=== PATIENT | female | born 1980 | race Caucasian/White ===

== ENCOUNTER → 2017-08-18 | Outpatient (CLI) | payer MEDICAID ==
--- NOTE | 2017-08-18 10:46 | RADIOLOGY REPORT (SQ) ---
EXAM DESCRIPTION: SHOULDER LEFT 2 OR MORE VIEWS COMPLETED DATE/TIME: 08/18/2017 9:08 am REASON FOR STUDY: PAIN IN LEFT SHOULDER M25.512 PAIN IN LEFT SHOULDER COMPARISON: None. NUMBER OF VIEWS: Three views. TECHNIQUE: Internal rotation, external rotation, and Y view images acquired of the left shoulder. LIMITATIONS: None. FINDINGS: MINERALIZATION: Normal. BONES: No acute fracture or dislocation. No worrisome bone lesions. JOINTS: No dislocation. VISUALIZED LUNGS AND RIBS: No pneumothorax. No rib fracture. SOFT TISSUES: No radiopaque foreign body. OTHER: No other significant finding. IMPRESSION: NEGATIVE STUDY OF THE LEFT SHOULDER. NO RADIOGRAPHIC EVIDENCE OF ACUTE INJURY. TECHNICAL DOCUMENTATION: JOB ID: [id number] [employer]- All Rights Reserved
== END ==
LOC: OD 08:52
PROVIDERS: ATTEND Physician Assistant
DX: M25.512 Pain in left shoulder (principal)

== ENCOUNTER 2017-09-26 14:00 | Emergency (ER) | payer SELFPAY ==
[2017-09-26 14:06] VITALS: BP 125/63
--- NOTE | 2017-09-26 15:16 | ER Document Report ---
HPI - HPI Patient complains to provider of: Bartholin's gland infection Onset: Other - 10 days Onset/Duration: Persistent Quality of pain: Sharp Pain Level: 5 Context: Patient presents complaining of a Bartholin's gland abscess for the past 10 days. Patient states she recently had it drained 1 week ago was placed on Keflex. Patient states that she took the medicine for a few days and when the symptoms got better she stopped the antibiotic. Patient reports subjective fever yesterday. Patient does complain of some nausea. Associated Symptoms: Fever, Nausea Exacerbated by: Movement Relieved by: Denies Similar symptoms previously: Yes Recently seen / treated by doctor: Yes - ROS ROS below otherwise negative: Yes Systems Reviewed and Negative: Yes All other systems reviewed and negative - CONSTITUTIONAL Constitutional: REPORTS: Fever - GASTROINTESTINAL Gastrointestinal: REPORTS: Nausea - REPRODUCTIVE Reproductive: DENIES: : - DERM Notes: Bartholin's gland abscess Past Medical History - General Information source: Patient Last Menstrual Period: current - Social History Smoking Status: Current Every Day Smoker Smoking Education Provided: Yes Frequency of alcohol use: None Drug Abuse: None 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 Family History: Reviewed & Not Pertinent - Past Medical History Cardiac Medical History: Pulmonary Medical History: Endocrine Medical History: Denies: Hx Diabetes Mellitus Type 1, Hx Diabetes Mellitus Type 2 GI Medical History: Denies: Hx Hepatitis Musculoskeltal Medical History: 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 IN LAST 30 DAYS: No - HEENT HEENT: Atraumatic, Normocephalic - NECK Neck: Normal Inspection, Supple - RESPIRATORY Respiratory: Breath Sounds Normal, No Respiratory Distress O2 Sat by Pulse Oximetry: 98 - CARDIOVASCULAR Cardiovascular: Regular Rate, Regular Rhythm - REPRODUCTIVE Female Genitalia: Abnormal Inspection - bartholin gland abscess to left side - BACK Back: Normal Inspection - MUSCULOSKELETAL/EXTREMETIES Musculoskeletal/Extremeties: MAEW - NEURO Level of Consciousness: Awake, Alert, Appropriate Motor/Sensory: No Motor Deficit - DERM Integumentary: Warm, Dry Course - Re-evaluation Re-evalutation: 09/26/17 15:55 Offered placement of a Word catheter, patient declines and prefers only incision and drainage procedure here - Vital Signs Vital signs: Temp Pulse Resp BP Pulse Ox 98.0 F 89 16 125/63 98 09/26/17 14:05 09/26/17 14:05 09/26/17 14:05 09/26/17 14:05 09/26/17 14:05 Procedures - Incision and Drainage Left Labia Type: Simple Anesthetic type: 1% Lidocaine Blade size: 11 I&D procedure: Betadine prep applied Incision Method: Incision made by scalpel Amount/type of drainage: mod amount of purulent drainage Discharge - Discharge Clinical Impression: Bartholin's gland infection Condition: Stable Disposition: HOME, SELF-CARE Instructions: Abscess ([facility]), Oral Narcotic Medication ([facility]), Post Incision and Drainage, Trimethoprim-Sulfa ([facility]) Additional Instructions: Return immediately for any new or worsening symptoms Followup with your primary care provider, call tomorrow to make a followup appointment follow-up with a diet technician registered for definitive management of your Bartholin gland abscess Prescriptions: Oxycodone HCl/Acetaminophen [Percocet 5-325 mg Tablet] 1 tab PO ASDIR PRN #12 tablet PRN Reason: Promethazine HCl [Phenergan 25 mg Tablet] 25 mg PO Q6H PRN #10 tablet PRN Reason: Sulfamethoxazole/Trimethoprim [Bactrim Ds Tablet] 1 each PO BID #20 tablet Referrals: [facility] [Provider Group] - Follow up as needed [facility] [Provider Group] - Follow up as needed
[2017-09-26] MEDS ORDERED: ONDANSETRON 4 MG TAB.RAPDIS PO ONE (15:55)
[2017-09-26] MEDS ORDERED: SULFAMETHOXAZOLE/TRIMETHOPRIM 800-160 MG TABLET PO ONE (15:55)
== END 2017-09-26 16:10 | disposition home or self-care (01) ==
LOC: ER 14:00
PROC: 0U9L0ZZ Drainage of Vestibular Gland, Open Approach (ICD-10-PCS; principal; 2017-09-26)
DX: N75.1 Abscess of Bartholin's gland (principal); R11.0 Nausea; R50.9 Fever, unspecified; F17.200 Nicotine dependence, unspecified, uncomplicated
CPT/HCPCS: 99283; 56420; S0119

== ENCOUNTER 2017-10-30 16:59 | Emergency (ER) | payer MEDICAID ==
--- NOTE | 2017-10-30 17:20 | ER Document Report ---
ED Medical Screen (RME) - General Chief Complaint: Flank Pain Stated Complaint: LEFT SIDE FLANK PAIN Time Seen by Provider: 10/30/17 17:13 Notes: Patient says that she has had a sharp pain in the left flank region that started last night and radiates around and down into the left lower quadrant. Onset of the pain was while she was sitting and not doing anything strenuous. 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 Has never had this before. Nauseated but not vomiting. No diarrhea or other change in bowels. Denies any fever but has had some sweats for the past couple of days. Denies any history of kidney stones. Does not recall having a UTI or kidney infection. Patient has had her gallbladder removed. Tubes tied. Just finished her most recent period. Has anxiety and occasionally has to take a Xanax, but does not feel that way now. TRAVEL OUTSIDE OF THE [place] IN LAST 30 DAYS: No - Related Data Allergies/Adverse Reactions: No Known Allergies Allergy (Verified 10/30/17 17:01) Home Medications: Current Home Medications Alprazolam [Xanax] 1 mg PO DAILY 10/30/17 [History] Past Medical History - Social History Chew tobacco use (# tins/day): No Frequency of alcohol use: Rare Drug Abuse: None - Past Medical History Cardiac Medical History: Pulmonary Medical History: Endocrine Medical History: Denies: Hx Diabetes Mellitus Type 1, Hx Diabetes Mellitus Type 2 Renal/ Medical History: Denies: Hx Peritoneal Dialysis GI Medical History: Denies: Hx Hepatitis Musculoskeltal Medical History: 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 Psychiatric Medical History: Reports: Hx Anxiety, Hx Depression Infectious Medical History: Denies: Hx Hepatitis Past Surgical History: Reports: Hx Cholecystectomy, Hx Gynecologic Surgery - tubal ligation, Hx Tubal Ligation - Immunizations Immunizations up to date: Yes Hx Diphtheria, Pertussis, Tetanus Vaccination: Yes Physical Exam - Vital signs Vitals: Temp Pulse Resp BP Pulse Ox 98.8 F 88 14 122/68 100 10/30/17 17:04 10/30/17 17:04 10/30/17 17:04 10/30/17 17:04 10/30/17 17:04 Course - Vital Signs Vital signs: Temp Pulse Resp BP Pulse Ox 98.8 F 88 14 122/68 100 10/30/17 17:04 10/30/17 17:04 10/30/17 17:04 10/30/17 17:04 10/30/17 17:04
[2017-10-30 18:04] LABS: ABSOLUTE EOSINOPHILS # (AUTO) 0.1 10^3/uL (0.0-0.6); ABSOLUTE LYMPHOCYTES (AUTO) 2.6 10^3/uL (0.5-4.7); ABSOLUTE MONOCYTES (AUTO) 0.8 10^3/uL (0.1-1.4); ABSOLUTE NEUT (AUTO) 5.1 10^3/uL (1.7-8.2); BASOPHILS % (AUTO) 0.3 % (0-2); EOSINOPHILS % (AUTO) 1.1 % (0-6); HEMATOCRIT 36.3 % (36.0-47.0); HEMOGLOBIN 12.5 g/dL (12.0-15.5); HGB HCT DIFFERENCE 1.2; LYMPHOCYTES % (AUTO) 30.5 % (13-45); MEAN CORPUSCULAR HEMOGLOBIN 30.8 pg (27.0-33.4); MEAN CORPUSCULAR HGB CONC 34.3 g/dL (32.0-36.0); MEAN CORPUSCULAR VOLUME 90 fl (80-97); MONOCYTES % (AUTO) 8.8 % (3-13); RED BLOOD COUNT 4.04 10^6/uL (3.72-5.28); RED CELL DISTRIBUTION WIDTH 12.7 % (11.5-14.0); SEGMENTED NEUTROPHILS % (AUTO) 59.3 % (42-78); WHITE BLOOD COUNT 8.6 10^3/uL (4.0-10.5)
[2017-10-30 18:12] LABS: APPEARANCE,URINE SLIGHTLY-CLOUDY; BILIRUBIN,URINE NEGATIVE (NEGATIVE); GLUCOSE, URINE NEGATIVE (NEGATIVE); KETONES,URINE NEGATIVE (NEGATIVE); LEUKOCYTE ESTERASE,URINE SMALL (NEGATIVE); NITRITE,URINE NEGATIVE (NEGATIVE); PROTEIN,URINE NEGATIVE (NEGATIVE); URINE SPECIFIC GRAVITY 1.019; UROBILINOGEN,URINE NEGATIVE mg/dL (<2.0)
[2017-10-30 18:23] LABS: ALANINE AMINOTRANSFERASE 20 U/L (9-52); ALBUMIN 4.5 g/dL (3.5-5.0); ALKALINE PHOSPHATASE 36 U/L (38-126); ANION GAP 12 (5-19); ASPARTATE AMINO TRANSFERASE 27 U/L (14-36); BILIRUBIN,DIRECT 0.2 mg/dL (0.0-0.4); BILIRUBIN,TOTAL 0.3 mg/dL (0.2-1.3); BLOOD UREA NITROGEN 14 mg/dL (7-20); CALCIUM 9.8 mg/dL (8.4-10.2); CARBON DIOXIDE 27 mmol/L (22-30); CHLORIDE 105 mmol/L (98-107); CREATININE RESULT 0.73 mg/dL (0.52-1.25); GLUCOSE 85 mg/dL (75-110); LIPASE 80.9 U/L (23-300); POTASSIUM 3.7 mmol/L (3.6-5.0); SODIUM 143.6 mmol/L (137-145); TOTAL PROTEIN 7.4 g/dL (6.3-8.2)
--- NOTE | 2017-10-30 20:32 | RADIOLOGY REPORT (SQ) ---
EXAM DESCRIPTION: KUB/ABDOMEN (SINGLE VIEW) COMPLETED DATE/TIME: 10/30/2017 8:10 pm REASON FOR STUDY: Abdominal pain COMPARISON: None. NUMBER OF VIEWS: One view. TECHNIQUE: Supine radiographic image of the abdomen acquired. LIMITATIONS: None. FINDINGS: BOWEL GAS PATTERN: Normal bowel gas pattern. No dilated loops. CALCIFICATIONS: No suspicious calcifications. SOFT TISSUES: No gross mass or suggestion of organomegaly. HARDWARE: Clips right upper quadrant. BONES: No bone lesions or fracture. OTHER: No other significant finding. IMPRESSION: NO RADIOGRAPHIC EVIDENCE FOR ACUTE ABDOMINAL DISEASE.
--- NOTE | 2017-10-30 21:43 | ER Document Report ---
ED General - General Chief Complaint: Flank Pain Stated Complaint: LEFT SIDE FLANK PAIN Time Seen by Provider: 10/30/17 17:13 Mode of Arrival: Ambulatory Information source: Patient Notes: 37 years old female presents today with left flank pain radiating to the groin on and off. Few days. Associated with nausea and vomited 2. Denies any fever chills dysuria frequency urgency. TRAVEL OUTSIDE OF THE [place] IN LAST 30 DAYS: No - Related Data Allergies/Adverse Reactions: No Known Allergies Allergy (Verified 10/30/17 17:01) Home Medications: Current Home Medications Alprazolam [Xanax] 1 mg PO DAILY 10/30/17 [History] Past Medical History - Social History Smoking Status: Current Some Day Smoker Chew tobacco use (# tins/day): No Frequency of alcohol use: Rare Drug Abuse: None Family History: Reviewed & Not Pertinent Patient has suicidal ideation: No Patient has homicidal ideation: No - Past Medical History Cardiac Medical History: Pulmonary Medical History: Endocrine Medical History: Denies: Hx Diabetes Mellitus Type 1, Hx Diabetes Mellitus Type 2 Renal/ Medical History: Denies: Hx Peritoneal Dialysis GI Medical History: Denies: Hx Hepatitis Musculoskeltal Medical History: 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 Denies recent illness. EENT: Denies eye, ear, throat, or mouth pain or symptoms. Denies nasal or sinus congestion or discharge. Denies throat, tongue, or mouth swelling or difficulty swallowing. CARDIOVASCULAR: Denies chest pain. Denies palpitations or racing or irregular heart beat. Denies ankle edema. RESPIRATORY: Denies cough, cold, or chest congestion. Denies shortness of breath, difficulty breathing, or wheezing. GASTROINTESTINAL: Denies abdominal pain or distention. Denies nausea, vomiting , or diarrhea. Denies blood in vomitus, stools, or per rectum. Denies black, tarry stools. Denies constipation. GENITOURINARY: Denies difficulty urinating, painful urination, burning, frequency, blood in urine, or discharge. FEMALE GENITOURINARY: Denies vaginal bleeding, heavy or abnormal periods, irregular periods. Denies vaginal discharge or odor. MUSCULOSKELETAL: Denies back or neck pain or stiffness. Denies joint pain or swelling. SKIN: Denies rash, lesions or sores. HEMATOLOGIC : Denies easy bruising or bleeding. LYMPHATIC: Denies swollen, enlarged glands. NEUROLOGICAL: Denies confusion or altered mental status. Denies passing out or loss of consciousness. Denies dizziness or lightheadedness. Denies headache. Denies weakness or paralysis or loss of use of either side. Denies problems with gait or speech. Denies sensory loss, numbness, or tingling. Denies seizures. PSYCHIATRIC: Denies anxiety or stress. Denies depression, suicidal ideation, or homicidal ideation. ALL OTHER SYSTEMS REVIEWED AND NEGATIVE. PHYSICAL EXAMINATION: GENERAL: Well-appearing, well-nourished and in no acute distress. HEAD: Atraumatic, normocephalic. EYES: Pupils equal round and reactive to light, extraocular movements intact, conjunctiva are normal. ENT: Nares patent, oropharynx clear without exudates. Moist mucous membranes. NECK: Normal range of motion, supple without lymphadenopathy LUNGS: Breath sounds clear to auscultation bilaterally and equal. No wheezes rales or rhonchi. HEART: Regular rate and rhythm without murmurs ABDOMEN: Soft, nontender, nondistended abdomen. No guarding, no rebound. No masses appreciated. Female : deferred Musculoskeletal: Normal range of motion, no pitting or edema. No cyanosis. NEUROLOGICAL: Cranial nerves grossly intact. Normal speech, normal gait. Normal sensory, motor exams PSYCH: Normal mood, normal affect. SKIN: Warm, Dry, normal turgor, no rashes or lesions noted. Dictation was performed using [employer] voice recognition software Physical Exam - Vital signs Vitals: Temp Pulse Resp BP Pulse Ox 98.8 F 88 14 122/68 100 10/30/17 17:04 10/30/17 17:04 10/30/17 17:04 10/30/17 17:04 10/30/17 17:04 Course - Re-evaluation Re-evalutation: 10/30/17 21:40 Lab report and KUB was reviewed with patient. She was unhappy that it took 6 hours for her to be here we are very busy today - Vital Signs Vital signs: Temp Pulse Resp BP Pulse Ox 98.8 F 88 14 122/68 100 10/30/17 17:04 10/30/17 17:04 10/30/17 17:04 10/30/17 17:04 10/30/17 17:04 - Laboratory Result Diagrams: 10/30/17 17:45 10/30/17 17:45 Laboratory results interpreted by me: 10/30/17 10/30/17 17:40 17:45 Alkaline Phosphatase 36 L Ur Leukocyte Esterase SMALL H - Diagnostic Test Radiology reviewed: Reports reviewed - Abdominal report is read from the radiologist, but KUB showed large amount of retained feces Discharge - Discharge Clinical Impression: Abdominal pain Qualifiers: Abdominal location: generalized Qualified Code(s): R10.84 - Generalized abdominal pain Retained feces Qualifiers: Constipation type: slow transit constipation Qualified Code(s): K59.01 - Slow transit constipation Disposition: HOME, SELF-CARE Instructions: Abdominal Pain ([facility]), Bulk Laxatives Additional Instructions: Regular bowel her bowel habit, lots of fibers Prescriptions: Ketorolac Tromethamine [Toradol 10 mg Tablet] 10 mg PO Q6HP PRN #14 tablet PRN Reason: Lactulose 20 gm PO BID #100 ml
[2017-10-30 21:50] VITALS: BP 127/71
== END 2017-10-30 21:49 | disposition home or self-care (01) ==
LOC: ER 16:59
DX: K59.01 Slow transit constipation (principal); R10.84 Generalized abdominal pain; R11.2 Nausea with vomiting, unspecified; F17.200 Nicotine dependence, unspecified, uncomplicated; Z79.899 Other long term (current) drug therapy
CPT/HCPCS: 36415; 74000; 80053; 81001; 83690; 84703; 85025; 99284

== ENCOUNTER 2018-12-14 17:23 | Emergency (ER) | payer MEDICAID ==
[2018-12-14] MEDS ORDERED: ACETAMINOPHEN 325 MG TABLET PO ONE (18:36)
[2018-12-14] MEDS ORDERED: IBUPROFEN 600 MG TABLET PO ONE (18:45)
[2018-12-14] MEDS ORDERED: DEXAMETHASONE SOD PHOS INJ 10 MG/1 ML VIAL IM ONE (18:48)
--- NOTE | 2018-12-14 18:49 | ER Document Report ---
HPI - HPI Patient complains to provider of: fever, chills ,sore throat Time Seen by Provider: 12/14/18 18:35 Pain Level: 4 Context: 38-year-old female with no past medical history presents to the emergency department for fever, raw throat, and bilateral earaches. She says symptoms started yesterday when she was at a friend's house and fell asleep on the couch for 4 hours. She was fine and then today her throat started getting scratchy and then became acutely worse. She complains of dysphagia, fever, chills denies nausea or vomiting, denies shortness of breath or chest pain. She denies urinary symptoms. She has no other symptoms. 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 No acute distress. HEAD: Normocephalic, atraumatic. EYES: Pupils equal, round, and reactive. Extraocular movements intact. ENT: Oral mucosa moist, tongue midline, uvula midline 2+ tonsillar hypertrophy, exudate on right tonsil NECK: Full range of motion. Supple. Trachea midline. Bilateral submandibular and cervical lymphadenopathy LUNGS: Clear to auscultation bilaterally, no wheezes, rales, or rhonchi. No respiratory distress. HEART: Regular rate and rhythm. No murmur ABDOMEN: soft, non-tender. Non-distended. Bowel sounds present in all 4 quadrants. no McBurney's point tenderness, no Eubanks sign. EXTREMITIES: Moves all 4 extremities spontaneously. No edema, No cyanosis. BACK: no cervical, thoracic, lumbar midline tenderness. No saddle anesthesia, normal distal neurovascular exam. NEUROLOGICAL: Alert and oriented x3. Normal speech. PSYCH: Normal affect, normal mood. SKIN: Warm, dry, normal turgor. No rashes or lesions noted. - INFECTION CONTROL TRAVEL OUTSIDE OF THE [place] IN LAST 30 DAYS: No Course - Re-evaluation Re-evalutation: 12/14/18 18:47 38 female presents with high fever that started today, sore throat, and earache. Plan is to obtain a rapid strep. Plan is to give her 1 dose of dexamethasone. 12/14/18 19:49 Positive for group A strep. Plan to give penicillin G IM 1,200,000 units 1 time and discharge. Patient is safe and stable for discharge pending vital signs - Vital Signs Vital signs: Temp Pulse Resp BP Pulse Ox 102.3 F H 122 H 20 125/73 100 12/14/18 18:00 12/14/18 18:00 12/14/18 18:00 12/14/18 18:00 12/14/18 18:00 Discharge - Discharge Clinical Impression: Pharyngitis due to group A beta hemolytic Streptococci Condition: Good Disposition: HOME, SELF-CARE Instructions: Acetaminophen, Fever ([facility]), Strep Throat ([facility]) Additional Instructions: You have been diagnosed with strep throat based on a positive strep test. You have been treated with a dose of penicillin here in the emergency department and do not need any additional antibiotics. You have also been given a dose of steroids to help with your throat discomfort. Please continue to take ibuprofen 600 mg every 6 hours or Tylenol 1000 mg every 6 hours as needed for throat discomfort. You can also gargle with salt water. Continue to drink plenty of fluids. Follow-up with your primary care doctor in the next several days. Return if you become unable to swallow, have difficulty breathing, pass out, have persistent vomiting that prevents you from being able to tolerate fluids, or have any other symptoms that are concerning to you. Prescriptions: Penicillin V Potassium [Penicillin Vk 500 mg Tablet] 500 mg PO BID 10 Days #20 tablet Referrals: KELLI OCHOA MD [Primary Care Provider] - Follow up as needed
[2018-12-14] MEDS ORDERED: PENICILLIN G BENZATHINE 1.2 MILLION UNIT/2 ML DISP.SYRIN IM ONE (19:48)
[2018-12-14] MEDS ORDERED: PENICILLIN V POTASSIUM 500 MG TABLET PO ONE (20:08)
[2018-12-14 20:24] VITALS: BP 129/70
== END 2018-12-14 20:28 | disposition home or self-care (01) ==
LOC: ER 17:23
DX: J02.0 Streptococcal pharyngitis (principal); R50.9 Fever, unspecified; H92.03 Otalgia, bilateral; F17.200 Nicotine dependence, unspecified, uncomplicated
CPT/HCPCS: 99283; 96372; 87880; J3490 ×3; J1100

== ENCOUNTER 2019-11-13 07:42 | Emergency (ER) | payer MEDICAID ==
[2019-11-13] MEDS ORDERED: IBUPROFEN 600 MG TABLET PO ONE (08:38)
[2019-11-13] MEDS ORDERED: ONDANSETRON 4 MG TAB.RAPDIS PO ONE (08:38)
--- NOTE | 2019-11-13 08:41 | ER Document Report ---
ED General - General Chief Complaint: Nausea Stated Complaint: NAUSEA,VOMITING,DIARRHEA Primary Care Provider: KELLI FORTUNE DO [Primary Care Provider] - Follow up as needed Notes: 39-year-old female previously healthy presents with ongoing malaise nausea and loose stools onset yesterday. For 24 hours. Constant. Able to drink water but nothing more. No belly pain no fevers. Went out drinking heavily on Wednesday night and felt this way since Wednesday morning. No foreign travel antibiotics. Denies any other medical history. TRAVEL OUTSIDE OF THE [place] 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 Psychiatric Medical History: Reports: Hx Anxiety, Hx Depression Infectious Medical History: Denies: Hx Hepatitis Past Surgical History: Reports: Hx Cholecystectomy, Hx Gynecologic Surgery - tubal ligation, Hx Tubal Ligation - Immunizations Immunizations up to date: Yes Hx Diphtheria, Pertussis, Tetanus Vaccination: Yes Review of Systems - Review of Systems Notes: REVIEW OF SYSTEMS GEN: Denies fever, chills, weight loss ENT: Denies sore throat, nasal discharge, ear pain EYES: Denies blurry vision, eye pain, discharge CV: Denies chest pain, palpitations, edema RESP: Denies cough, shortness of breath, wheezing GI: Vomiting loose stool MSK: Denies joint pain/swelling, edema, SKIN: Denies rash, skin lesions LYMPH: Denies swollen glands/lymph nodes NEURO: Denies headache, focal weakness or numbness, dizziness PSYCH: Denies depression, suicidal or homicidal ideation PHYSICAL EXAMINATION General: No acute distress, well-nourished Head: Atraumatic, normocephalic ENT: Mouth normal, oropharynx moist, no exudates or tonsillar enlargement Eyes: Conjunctiva normal, pupils equal, lids normal Neck: No JVD, supple, no guarding CVS: Normal rate, regular rhythm, no murmurs Resp: No resp distress, equal and normal breath sounds bilaterally GI: Nondistended, soft, no tenderness to palpation, no rebound or guarding Ext: No deformities, no edema, normal range of motion in upper and lower ext Back: No CVA or midline TTP Skin: No rash, warm Lymphatic: No lymphadeopathy noted Neuro: Awake, alert. Face symmetric. GCS 15. Physical Exam - Vital signs Vitals: Temp Pulse Resp BP Pulse Ox 97.8 F 79 18 114/78 98 11/13/19 07:46 11/13/19 07:46 11/13/19 07:46 11/13/19 07:46 11/13/19 07:46 Course - Re-evaluation Re-evalutation: 11/13/19 08:39 Patient presents with resolving nausea and vomiting, no abdominal pain or tenderness normal vital signs, not clinically dehydrated. Suspect alcoholrelated. Doubt focal abdominal tenderness or other surgical issues. She has no urinary symptoms either. We will treat her with Zofran Motrin, should be discharged to hydrate orally. I have discussed with the patient there likely diagnosis, aftercare plan, follow-up plans and my usual and customary return precautions. They verbalized understanding of this. - Vital Signs Vital signs: Temp Pulse Resp BP Pulse Ox 97.8 F 79 18 114/78 98 11/13/19 07:46 11/13/19 07:46 11/13/19 07:46 11/13/19 07:46 11/13/19 07:46 Discharge - Discharge Clinical Impression: Nausea vomiting and diarrhea Condition: Good Disposition: HOME, SELF-CARE Instructions: Antinausea Medication ([facility]), Vomiting ([facility]) Prescriptions: Ondansetron [Ondansetron Odt] 8 mg PO TIDP PRN #7 tab.rapdis PRN Reason: Referrals: KELLI FORTUNE DO [Primary Care Provider] - Follow up as needed
[2019-11-13 09:14] VITALS: BP 109/50
== END 2019-11-13 09:14 | disposition home or self-care (01) ==
LOC: ER 07:42
DX: R11.2 Nausea with vomiting, unspecified (principal); R19.7 Diarrhea, unspecified; R53.81 Other malaise
CPT/HCPCS: 99283; S0119; J3490

== ENCOUNTER 2020-01-18 09:11 | Emergency (ER) | payer MEDICAID ==
[2020-01-18] MEDS ORDERED: ACETAMINOPHEN 325 MG TABLET PO ONE (10:14)
[2020-01-18] MEDS ORDERED: IBUPROFEN 600 MG TABLET PO ONE (10:14)
[2020-01-18] MEDS ORDERED: ONDANSETRON 4 MG TAB.RAPDIS PO ONE (10:14)
--- NOTE | 2020-01-18 10:15 | ER Document Report ---
ED Medical Screen (RME) - General Chief Complaint: Dizziness Stated Complaint: DIZZINESS/CHILLS/COUGH/VOMITING Time Seen by Provider: 01/18/20 10:09 Primary Care Provider: KELLI FORTUNE DO [Primary Care Provider] - Follow up as needed Mode of Arrival: Ambulatory Information source: Patient Notes: Otherwise healthy 39-year-old female presents emergency department fever, congestion, body aches and sore throat. 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 She has not taken any Tylenol or ibuprofen today. Lung sounds clear and equal bilaterally. I have greeted and performed a rapid initial assessment of this patient. A comprehensive ED assessment and evaluation of the patient, analysis of test results and completion of the medical decision making process will be conducted by additional ED providers. I have specifically instructed the patient or family members with the patient to immediately return to any nursing staff should anything change in the patient's condition or with their chief complaint. TRAVEL OUTSIDE OF THE [place] 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 Psychiatric Medical History: Reports: Hx Anxiety, Hx Depression Infectious Medical History: Denies: Hx Hepatitis Past Surgical History: Reports: Hx Cholecystectomy, Hx Gynecologic Surgery - tubal ligation, Hx Tubal Ligation - Immunizations Immunizations up to date: Yes Hx Diphtheria, Pertussis, Tetanus Vaccination: Yes Physical Exam - Vital signs Vitals: Temp Pulse Resp BP Pulse Ox 100.5 F H 99 16 126/62 H 96 01/18/20 09:19 01/18/20 09:19 01/18/20 09:19 01/18/20 09:19 01/18/20 09:19 Course - Vital Signs Vital signs: Temp Pulse Resp BP Pulse Ox 100.5 F H 99 16 126/62 H 96 01/18/20 09:19 01/18/20 09:19 01/18/20 09:19 01/18/20 09:19 03/12/20 09:19 Doctor's Discharge - Discharge Referrals: KELLI FORTUNE, [Primary Care Provider] - Follow up as needed
--- NOTE | 2020-01-18 10:40 | RADIOLOGY REPORT (SQ) ---
EXAM DESCRIPTION: CHEST 2 VIEWS COMPLETED DATE/TIME: 01/18/2020 10:31 am REASON FOR STUDY: fever/cough COMPARISON: None. TECHNIQUE: Frontal and lateral radiographic views of the chest acquired. NUMBER OF VIEWS: Two view. LIMITATIONS: None. FINDINGS: LUNGS AND PLEURA: No opacities, masses or pneumothorax. No pleural effusion. MEDIASTINUM AND HILAR STRUCTURES: No masses or contour abnormalities. HEART AND VASCULAR STRUCTURES: Heart normal size. No evidence for failure. BONES: No acute findings. HARDWARE: None in the chest. OTHER: No other significant finding. IMPRESSION: NO SIGNIFICANT RADIOGRAPHIC FINDING IN THE CHEST. TECHNICAL DOCUMENTATION: JOB ID: [id number] 2010 [employer]- All Rights Reserved Reading location - IP/workstation name: [email or web address]
[2020-01-18 10:57] LABS: A TYPE INFLUENZA AG NEGATIVE (NEGATIVE); B INFLUENZA AG NEGATIVE (NEGATIVE)
[2020-01-18] MEDS ORDERED: NORMAL SALINE 1000 ML 1,000 ML IV ONE (12:41)
[2020-01-18] MEDS ORDERED: FAMOTIDINE INJ/PF 20 MG/2 ML SDV IV ONE (12:42)
[2020-01-18 13:21] LABS: HEMOGLOBIN 11.8 g/dL (12.0-15.5); MEAN CORPUSCULAR HEMOGLOBIN 28.7 pg (27.0-33.4); MEAN CORPUSCULAR HGB CONC 33.8 g/dL (32.0-36.0); MEAN CORPUSCULAR VOLUME 85 fl (80-97); PLATELET COUNT 221 10^3/uL (150-450); RED BLOOD COUNT 4.12 10^6/uL (3.72-5.28); RED CELL DISTRIBUTION WIDTH 14.6 % (11.5-14.0); WHITE BLOOD COUNT 5.5 10^3/uL (4.0-10.5)
[2020-01-18 13:40] LABS: ALBUMIN 4.5 g/dL (3.5-5.0); ALKALINE PHOSPHATASE 45 U/L (38-126); ANION GAP 11 (5-19); ASPARTATE AMINO TRANSFERASE 35 U/L (14-36); BILIRUBIN,DIRECT 0.3 mg/dL (0.0-0.4); BILIRUBIN,TOTAL 0.3 mg/dL (0.2-1.3); BLOOD UREA NITROGEN 16 mg/dL (7-20); CALCIUM 9.4 mg/dL (8.4-10.2); CARBON DIOXIDE 23 mmol/L (22-30); CHLORIDE 103 mmol/L (98-107); GLUCOSE 110 mg/dL (75-110); TOTAL PROTEIN 7.7 g/dL (6.3-8.2)
[2020-01-18 14:06] LABS: ABSOLUTE LYMPHOCYTES# (MANUAL) 0.2 10^3/uL (0.5-4.7); ABSOLUTE MONOCYTES # (MANUAL) 0.3 10^3/uL (0.1-1.4); BAND NEUTROPHILS % (MANUAL) 5 % (3-5); BASOPHILS % (MANUAL) 1 % (0-2); EOSINOPHILS % (MANUAL) 0 % (0-6); LYMPHOCYTES % (MANUAL) 3 % (13-45); MONOCYTES % (MANUAL) 6 % (3-13); SEGMENTED NEUTROPHILS % (MAN) 85 % (42-78); TOTAL CELLS COUNTED 100
[2020-01-18 14:07] LABS: ANISOCYTOSIS SLIGHT
[2020-01-18 14:08] LABS: OVALOCYTES SLIGHT; PLATELET COMMENT ADEQUATE
--- NOTE | 2020-01-18 14:14 | ER Document Report ---
ED General - General Chief Complaint: Dizziness Stated Complaint: DIZZINESS/CHILLS/COUGH/VOMITING Time Seen by Provider: 01/18/20 10:09 Primary Care Provider: KELLI FORTUNE DO [Primary Care Provider] - Follow up as needed Mode of Arrival: Ambulatory TRAVEL OUTSIDE OF THE [place] 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 Symptoms as above within the last 24 hours. Started vomiting this morning. Temperature 101 at home. No travel outside the area. No known history of exposure to individuals positive for Covid 19. No regular medications. No known allergies. - Related Data Allergies/Adverse Reactions: No Known Allergies Allergy (Verified 12/14/18 17:25) Past Medical History - General Information source: Patient - Social History Smoking Status: Current Every Day Smoker Family History: Reviewed & Not Pertinent Patient has suicidal ideation: No Patient has homicidal ideation: No - Past Medical History Cardiac Medical History: Pulmonary Medical History: Endocrine Medical History: Denies: Hx Diabetes Mellitus Type 1, Hx Diabetes Mellitus Type 2 Renal/ Medical History: Denies: Hx Peritoneal Dialysis GI Medical History: Denies: Hx Hepatitis Musculoskeletal Medical History: 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 HENT: Positive for sore throat. Eyes: Negative for visual changes. Cardiovascular: Negative for chest pain. Respiratory: Producing green sputum. Negative for shortness of breath. Gastrointestinal: Multiple episodes of vomiting this morning. Genitourinary: Negative for dysuria. Musculoskeletal: Negative for back pain. Skin: Negative for rash. Neurological: Dull headache present. 10 point ROS negative except as marked above and in HPI. Physical Exam - Vital signs Vitals: Temp Pulse Resp BP Pulse Ox 100.5 F H 99 16 126/62 H 96 01/18/20 09:19 01/18/20 09:19 01/18/20 09:19 01/18/20 09:19 01/18/20 09:19 - Notes Notes: GENERAL: Patient is warm to touch, flushed and appears somewhat uncomfortable. SKIN: Warm and flushed. HEAD: Normocephalic atraumatic. EYES: PERRLA. EOMI. Conjunctivae bilaterally injected. EARS: CANALS AND TMS CLEAR. NOSE: CLEAR. MOUTH: Moist mucosa. Good dentition. No stridor or edema. No drooling. Throat: Injected without exudate. NECK: Supple. No masses or thyromegaly. No adenopathy. Carotids 2+ without bruits. No JVD. BACK: Symmetrical without tenderness. CHEST: Respirations unlabored. Few scattered rhonchi bilaterally. HEART: Regular rhythm. No murmur gallop or rub. ABDOMEN: Soft nontender without masses, organomegaly or rebound. Bowel sounds hyperactive. No bruits. GENITALIA: Deferred. EXTREMITIES: No edema. No calf tenderness. Cap refill less than 1.5 seconds. Dorsalis pedis and posterior tibial pulses 3+ and symmetrical. NEUROLOGICAL: GCS 15. Alert and oriented x3. Fluent speech. Cranial nerves II through XII intact. Sensorimotor and cerebellar normal. Normal tone. PSYCHIATRIC: Appropriate affect. Course - Re-evaluation Re-evalutation: 01/18/20 15:23 Influenza a and B screens were negative. Chest x-ray showed no focal infiltrate. Rapid strep test negative. Patient's total white count not elevated although she does have a mild left shift. Her chemistry profile is unremarkable. Feels much better after getting some IV normal saline and IV Zofran. She is tolerating p.o. fluids and wants to go home at this time. This is probably viral but I am concerned about the production of green sputum along with her heavy cigarette smoking. I am going to send her home on some doxycycline and also give her some Zofran and a work note for the next 3 days. She is instructed to increase oral fluids and take Tylenol and/or ibuprofen. - Vital Signs Vital signs: Temp Pulse Resp BP Pulse Ox 98.0 F 78 16 106/54 L 99 01/18/20 13:17 01/18/20 13:17 01/18/20 09:19 01/18/20 13:17 01/18/20 13:17 - Laboratory Result Diagrams: 01/18/20 13:05 01/18/20 13:05 Laboratory results interpreted by me: 01/18/20 01/18/20 13:05 13:05 Hgb 11.8 L Hct 35.0 L RDW 14.6 H Seg Neuts % (Manual) 85 H Lymphocytes % (Manual) 3 L Abs Lymphs (Manual) 0.2 L Sodium 136.9 L ALT 59 H Discharge - Discharge Clinical Impression: Acute bronchitis Condition: Stable Disposition: HOME, SELF-CARE Instructions: Antinausea Medication ([facility]) Additional Instructions: Increase oral fluids. Tylenol/ibuprofen as needed. Use prescription medications as instructed. Follow-up with your physician if unimproved within the next 2 to 3 days. Return here as needed for new or worsening symptoms: Pain that is worsening or unimproved Uncontrolled vomiting High fever or shaking chills Overall worsening Prescriptions: Doxycycline Monohydrate 100 mg PO BID #20 capsule Ondansetron [Zofran Odt 4 mg Tablet] 1 - 2 tab PO Q4H PRN #15 tab.rapdis PRN Reason: For Nausea/Vomiting Forms: Return to Work, Smoking Cessation Education Referrals: KELLI FORTUNE DO [Primary Care Provider] - Follow up as needed
[2020-01-18 16:04] VITALS: BP 126/62
== END 2020-01-18 16:01 | disposition home or self-care (01) ==
LOC: ER 09:11
DX: J20.9 Acute bronchitis, unspecified (principal); R05 Cough; R50.9 Fever, unspecified; M79.10 Myalgia, unspecified site; R11.10 Vomiting, unspecified; J02.9 Acute pharyngitis, unspecified; R51 Headache; F17.210 Nicotine dependence, cigarettes, uncomplicated
CPT/HCPCS: 99284; 96361; 96374; 36415; 87070; 87880; 85025; 80053; 87804; 71046; J3490 ×2; S0119; J7030; S0028

== ENCOUNTER 2020-01-23 08:41 | Emergency (ER) | payer MEDICAID ==
--- NOTE | 2020-01-23 09:28 | ER Document Report ---
ED Medical Screen (RME) - General Chief Complaint: Flu Symptoms Stated Complaint: NAUSEA/CHILLS/COUGH Time Seen by Provider: 01/23/20 09:23 Primary Care Provider: KELLI FORTUNE DO [Primary Care Provider] - Follow up as needed Mode of Arrival: Ambulatory Information source: Patient Notes: 39-year-old female presents to ED for flulike symptoms. She is alert oriented respirations regular nonlabored speaking in full sentences her temperature is 97.8. He states she started with a cough and congestion last week she has sore throat runny nose upset stomach chest pain for last week she states she was here last week for similar symptoms and did not have an EKG. We will get her EKG and blood work. I have greeted and performed a rapid initial assessment of this patient. A comprehensive ED assessment and evaluation of the patient, analysis of test results and completion of medical decision making process will be conducted by an additional ED providers. TRAVEL OUTSIDE OF THE [place] 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 Psychiatric Medical History: Reports: Hx Anxiety, Hx Depression Infectious Medical History: Denies: Hx Hepatitis Past Surgical History: Reports: Hx Cholecystectomy, Hx Gynecologic Surgery - tubal ligation, Hx Tubal Ligation - Immunizations Immunizations up to date: Yes Hx Diphtheria, Pertussis, Tetanus Vaccination: Yes Physical Exam - Vital signs Vitals: Temp Pulse Resp BP Pulse Ox 97.8 F 64 16 119/67 98 01/23/20 08:45 01/23/20 08:45 01/23/20 08:45 01/23/20 08:45 01/23/20 08:45 Course - Vital Signs Vital signs: Temp Pulse Resp BP Pulse Ox 97.8 F 64 16 119/67 98 01/23/20 08:45 01/23/20 08:45 01/23/20 08:45 01/23/20 08:45 01/23/20 08:45 Doctor's Discharge - Discharge Referrals: KELLI FORTUNE DO [Primary Care Provider] - Follow up as needed
--- NOTE | 2020-01-23 10:20 | RADIOLOGY REPORT (SQ) ---
EXAM DESCRIPTION: CHEST 2 VIEWS COMPLETED DATE/TIME: 01/23/2020 8:44 am REASON FOR STUDY: cough congestion COMPARISON: Chest radiograph 06/27/2016 EXAM PARAMETERS: NUMBER OF VIEWS: two views TECHNIQUE: Digital Frontal and Lateral radiographic views of the chest acquired. RADIATION DOSE: NA LIMITATIONS: none FINDINGS: LUNGS AND PLEURA: No opacities, masses or pneumothorax. No pleural effusion. MEDIASTINUM AND HILAR STRUCTURES: No masses or contour abnormalities. HEART AND VASCULAR STRUCTURES: Heart normal size. No evidence for failure. BONES: No acute findings. HARDWARE: None in the chest. OTHER: No other significant finding. IMPRESSION: NO ACUTE RADIOGRAPHIC FINDING IN THE CHEST. TECHNICAL DOCUMENTATION: JOB ID: [id number] 2010 [employer]- All Rights Reserved Reading location - IP/workstation name: [email or web address]
[2020-01-23 10:21] LABS: APPEARANCE,URINE CLOUDY; BILIRUBIN,URINE NEGATIVE (NEGATIVE); COLOR,URINE AMBER; GLUCOSE, URINE NEGATIVE (NEGATIVE); KETONES,URINE 80 mg/dL (NEGATIVE); PROTEIN,URINE 30 mg/dL (NEGATIVE); URINE SPECIFIC GRAVITY 1.023; UROBILINOGEN,URINE NEGATIVE mg/dL (<2.0)
[2020-01-23 10:29] LABS: A TYPE INFLUENZA AG NEGATIVE (NEGATIVE); B INFLUENZA AG NEGATIVE (NEGATIVE)
[2020-01-23 10:33] LABS: ABSOLUTE LYMPHOCYTES (AUTO) 1.4 10^3/uL (0.5-4.7); ABSOLUTE MONOCYTES (AUTO) 0.5 10^3/uL (0.1-1.4); ABSOLUTE NEUT (AUTO) 3.7 10^3/uL (1.7-8.2); BASOPHILS % (AUTO) 0.5 % (0-2); EOSINOPHILS % (AUTO) 0.2 % (0-6); HEMATOCRIT 36.5 % (36.0-47.0); HEMOGLOBIN 12.6 g/dL (12.0-15.5); LYMPHOCYTES % (AUTO) 24.6 % (13-45); MEAN CORPUSCULAR HGB CONC 34.6 g/dL (32.0-36.0); MEAN CORPUSCULAR VOLUME 84 fl (80-97); MONOCYTES % (AUTO) 8.5 % (3-13); PLATELET COUNT 229 10^3/uL (150-450); RED BLOOD COUNT 4.36 10^6/uL (3.72-5.28); SEGMENTED NEUTROPHILS % (AUTO) 66.2 % (42-78); TOTAL CELLS COUNTED % (AUTO) 100 %; WHITE BLOOD COUNT 5.6 10^3/uL (4.0-10.5)
[2020-01-23 10:38] LABS: ALBUMIN 4.5 g/dL (3.5-5.0); ALKALINE PHOSPHATASE 44 U/L (38-126); ANION GAP 12 (5-19); ASPARTATE AMINO TRANSFERASE 50 U/L (14-36); BILIRUBIN,DIRECT 0.4 mg/dL (0.0-0.4); BILIRUBIN,TOTAL 0.6 mg/dL (0.2-1.3); BLOOD UREA NITROGEN 10 mg/dL (7-20); CALCIUM 9.1 mg/dL (8.4-10.2); CARBON DIOXIDE 22 mmol/L (22-30); CHLORIDE 106 mmol/L (98-107); GLUCOSE 139 mg/dL (75-110); POTASSIUM 3.7 mmol/L (3.6-5.0)
--- NOTE | 2020-01-23 12:29 | ER Document Report ---
ED General - General Chief Complaint: Flu Symptoms Stated Complaint: NAUSEA/CHILLS/COUGH Time Seen by Provider: 01/23/20 09:23 Primary Care Provider: KELLI FORTUNE DO [Primary Care Provider] - Follow up as needed Mode of Arrival: Ambulatory TRAVEL OUTSIDE OF THE [place] IN LAST 30 DAYS: No - HPI Notes: Patient is a 39-year-old female who presents emergency department for evaluation. She was seen here last week. She has had cough, fevers, body aches, chest pain, abdominal pain. She was diagnosed with bronchitis. She states she still is just not feeling right. She has had some nausea. She admits that when she starts coughing she feels very anxious. She states she was seen here last week and had some chest pain, they did not perform an EKG. She continues to be concerned, so she presents to the ER for further evaluation. - Related Data Allergies/Adverse Reactions: No Known Allergies Allergy (Verified 12/14/18 17:25) Past Medical History - General Information source: Patient - Social History Smoking Status: Former Smoker - Patient quit on January 18, 2020 Chew tobacco use (# tins/day): No Frequency of alcohol use: None Drug Abuse: None Family History: Reviewed & Not Pertinent Patient has suicidal ideation: No Patient has homicidal ideation: No - Past Medical History Cardiac Medical History: Pulmonary Medical History: Reports: Hx Bronchitis Endocrine Medical History: Denies: Hx Diabetes Mellitus Type 1, Hx Diabetes Mellitus Type 2 Renal/ Medical History: Denies: Hx Peritoneal Dialysis GI Medical History: Denies: Hx Hepatitis Musculoskeletal Medical History: 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 Psychiatric Medical History: Reports: Hx Anxiety, Hx Depression Infectious Medical History: Denies: Hx Hepatitis Past Surgical History: Reports: Hx Cholecystectomy, Hx Gynecologic Surgery - tubal ligation, Hx Tubal Ligation - Immunizations Immunizations up to date: Yes Hx Diphtheria, Pertussis, Tetanus Vaccination: Yes Review of Systems - Review of Systems Constitutional: See HPI EENT: See HPI Respiratory: See HPI Gastrointestinal: See HPI -: Yes All other systems reviewed and negative Physical Exam - Vital signs Vitals: Temp Pulse Resp BP Pulse Ox 97.8 F 64 16 119/67 98 01/23/20 08:45 01/23/20 08:45 01/23/20 08:45 01/23/20 08:45 01/23/20 08:45 - Notes Notes: This is a very pleasant 39-year-old female who appears her stated age, no acute distress. She is intermittently tearful, and seems anxious, but is cooperative with examiner. Vital signs reviewed, please refer to chart. Head is normocephalic, atraumatic. Pupils equal round, reactive to light. Neck is supple without meningismus. Heart is regular rate and rhythm. Lungs are clear to auscultation bilaterally. Abdomen is soft, nontender, normoactive bowel sounds throughout. Extremities without cyanosis, clubbing. Posterior calves are nontender. Peripheral pulses are equal. Skin is warm and dry. Patient is awake, alert, neurological exam is nonfocal. Course - Re-evaluation Re-evalutation: 01/23/20 12:27 Patient presents emergency department for evaluation. Laboratory investigations were obtained, as were EKG and chest x-ray. Chest x-ray fails to reveal infiltrate. EKG is normal. Laboratory investigations are unremarkable for anything acute, including a repeat negative influenza swab. My suspicion is that this patient has been recently ill, is recovering, but is remaining anxious secondary to her symptoms. At this point her vitals are within normal limits. Her laboratory investigations are largely unremarkable. I will send her home with reassurance, continue symptomatic care, and close follow-up. She is to return to the ED with worsening. - Vital Signs Vital signs: Temp Pulse Resp BP Pulse Ox 97.8 F 64 16 119/67 98 01/23/20 08:45 01/23/20 08:45 01/23/20 08:45 01/23/20 08:45 01/23/20 08:45 - Laboratory Result Diagrams: 01/23/20 09:55 01/23/20 09:55 Laboratory results interpreted by me: 01/23/20 01/23/20 09:55 09:55 Glucose 139 H AST 50 H ALT 40 H Urine Protein 30 H Urine Ketones 80 H Urine Blood SMALL H Leukocyte Esterase Rfl LARGE H - Diagnostic Test Radiology reviewed: Reports reviewed Radiology results interpreted by me: 01/23/20 12:30 Chest X-Ray 01/23/20 09:29 IMPRESSION: NO ACUTE RADIOGRAPHIC FINDING IN THE CHEST. - EKG Interpretation by Me Additional EKG results interpreted by me: 01/23/20 12:30 Sinus mechanism with rate of 64 bpm. Normal axis and intervals. No acute ST changes concerning for ischemia or infarction. Discharge - Discharge Clinical Impression: Nausea, Anxiety Acute bronchitis Qualifiers: Bronchitis organism: unspecified organism Qualified Code(s): J20.9 - Acute bronchitis, unspecified Condition: Stable Disposition: HOME, SELF-CARE Instructions: Anxiety ([facility]), Bronchitis ([facility]) Additional Instructions: Your evaluation today, including physical exam, labs, EKG, chest x-ray, were all normal. Please follow-up with your primary care physician in 1 to 2 weeks. Return to the emergency department with worsening or new concerning symptoms of any sort. Referrals: KELLI FORTUNE DO [Primary Care Provider] - Follow up as needed
[2020-01-23 12:33] VITALS: BP 109/71
--- NOTE | 2020-01-23 14:36 | EKG REPORT ---
SEVERITY:- NORMAL ECG - SINUS RHYTHM : Confirmed by: Ruma Layton MD 23-Jan-2020 14:34:50
== END 2020-01-23 12:51 | disposition home or self-care (01) ==
LOC: ER 08:41
DX: J20.9 Acute bronchitis, unspecified (principal); R11.0 Nausea; F41.9 Anxiety disorder, unspecified; R05 Cough; R50.9 Fever, unspecified; M79.10 Myalgia, unspecified site; R07.9 Chest pain, unspecified; R10.9 Unspecified abdominal pain; Z87.891 Personal history of nicotine dependence
CPT/HCPCS: 36415; 71046; 80053; 81001; 83690; 84484; 84703; 85025; 87804; 93005; 93010; 99285

== ENCOUNTER 2020-04-02 03:19 | Emergency (ER) | payer MEDICAID ==
--- NOTE | 2020-04-02 04:03 | ER Document Report ---
ED Psych Disorder / Suicide - General Chief Complaint: Anxiety Stated Complaint: ANXIETY ATTACK Time Seen by Provider: 04/02/20 03:48 Primary Care Provider: KELLI FORTUNE DO [Primary Care Provider] - Follow up as needed Notes: CHIEF COMPLAINT: Anxiety attack HPI: 40-year-old female presenting via EMS for evaluation of her anxiety attack that she woke up with tonight. No chest pain but states she felt very short of breath. Patient states she has had anxiety attacks in the past this felt similar although stronger. Patient states she is supposed to be on Lexapro but does not take it preferring to use daily marijuana to help with her anxiety. She denies any cardiac problems. Denies any discomfort at this time. States she is feeling much better after receiving 2 mg of Ativan IV by EMS ROS: See HPI - all other systems were reviewed and are otherwise negative Constitutional: no fever Eyes: no drainage, no blurred vision ENT: no runny nose, no sore throat Cardiovascular: no chest pain Resp: + SOB, no cough GI: no vomiting, no diarrhea, no abdominal pain : no dysuria Integumentary: no rash Allergy: no hives Musculoskeletal: no extremity pain or swelling Neurological: no numbness/tingling, no weakness MEDICATIONS: I agree with the patient medications as charted by the RN. ALLERGIES: I agree with the allergies as charted by the RN. PAST MEDICAL HISTORY/PAST SURGICAL HISTORY: Reviewed and agree as charted by RN. SOCIAL HISTORY: Reviewed and agree as charted by RN. FAMILY HISTORY: No significant familial comorbid conditions directly related to patient complaint EXAM: Reviewed vital signs as charted by RN. CONSTITUTIONAL: Alert and oriented and responds appropriately to questions although is somewhat drowsy and had to be spoken to in a loud voice to answer. Well-appearing; well-nourished HEAD: Normocephalic; atraumatic EYES: PERRL; Conjunctivae clear, sclerae non-icteric ENT: normal nose; no rhinorrhea; moist mucous membranes; pharynx without lesions noted, no uvula edema or deviation, no tonsillar hypertrophy, phonation normal NECK: Supple without meningismus; non-tender; no cervical lymphadenopathy, no masses CARD: RRR; no murmurs, no clicks, no rubs, no gallops; symmetric distal pulses RESP: Normal chest excursion without splinting or tachypnea; breath sounds clear and equal bilaterally; no wheezes, no rhonchi, no rales, pulse oximetry 98% on room air not hypoxic ABD/GI: Normal bowel sounds; non-distended; soft, non-tender, no rebound, no guarding; no palpable organomegaly or masses. BACK: The back appears normal and is non-tender to palpation, there is no CVA tenderness EXT: Normal ROM in all joints; non-tender to palpation; no cyanosis, no effusions, no edema SKIN: Normal color for age and race; warm; dry; good turgor; no acute lesions noted NEURO: Moves all extremities equally; Motor and sensory function intact PSYCH: The patient's mood and manner are drowsy but appropriate. Grooming and personal hygiene are appropriate. MDM: 40-year-old female presenting for anxiety attack tonight. Is supposed to be on Lexapro does not take Lexapro. EMS notes listed hydroxyzine although she denies taking this as well. She has a primary care provider. Will obtain EKG to ensure no arrhythmia patient has no other complaints at this time states that her mother will give her a ride home TRAVEL OUTSIDE OF THE [place] IN LAST 30 DAYS: No - Related Data Allergies/Adverse Reactions: No Known Allergies Allergy (Verified 12/14/18 17:25) Past Medical History - Social History Smoking Status: Current Every Day Smoker Chew tobacco use (# tins/day): No Frequency of alcohol use: None Drug Abuse: Marijuana Family History: Reviewed & Not Pertinent Patient has homicidal ideation: No - Past Medical History Cardiac Medical History: Pulmonary Medical History: Reports: Hx Bronchitis Endocrine Medical History: Denies: Hx Diabetes Mellitus Type 1, Hx Diabetes Mellitus Type 2 Renal/ Medical History: Denies: Hx Peritoneal Dialysis GI Medical History: Denies: Hx Hepatitis Musculoskeletal Medical History: 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 Psychiatric Medical History: Reports: Hx Anxiety, Hx Depression Infectious Medical History: Denies: Hx Hepatitis Past Surgical History: Reports: Hx Cholecystectomy, Hx Gynecologic Surgery - tubal ligation, Hx Tubal Ligation - Immunizations Immunizations up to date: Yes Hx Diphtheria, Pertussis, Tetanus Vaccination: Yes Physical Exam - Vital signs Vitals: Temp Pulse Resp BP Pulse Ox 98.0 F 87 16 101/58 L 98 04/02/20 03:34 04/02/20 03:34 04/02/20 03:34 04/02/20 03:34 04/02/20 03:34 Course - Re-evaluation Re-evalutation: 04/02/20 05:17 EKG normal sinus rhythm with a ventricular rate of 77. She had no chest pain. Still reports improvement in her anxiety. She may call her PCP today to discuss restarting her Lexapro which she is supposed to be on for anxiety. discussed with Dr. Farley, Attending. Patient with no known cardiac risk factors. - Vital Signs Vital signs: Temp Pulse Resp BP Pulse Ox 98.0 F 87 16 101/58 L 98 04/02/20 03:39 04/02/20 03:34 04/02/20 03:34 04/02/20 03:34 04/02/20 03:34 Discharge - Discharge Clinical Impression: Anxiety Condition: Stable Disposition: HOME, SELF-CARE Additional Instructions: Call your primary care provider today to discuss restarting your Lexapro for anxiety issues. Return for any concerns Referrals: KELLI FORTUNE, [Primary Care Provider] - Follow up as needed
[2020-04-02 06:21] VITALS: BP 106/66
--- NOTE | 2020-04-02 07:28 | EKG REPORT ---
SEVERITY:- NORMAL ECG - SINUS RHYTHM : Confirmed by: Real Willams MD 02-Apr-2020 07:27:01
== END 2020-04-02 06:30 | disposition home or self-care (01) ==
LOC: ER 03:19
DX: F41.9 Anxiety disorder, unspecified (principal); R06.02 Shortness of breath; F12.10 Cannabis abuse, uncomplicated; F17.200 Nicotine dependence, unspecified, uncomplicated
CPT/HCPCS: 93005; 93010; 99283

== ENCOUNTER 2020-04-13 22:06 | Emergency (ER) | payer MEDICAID, OTHER ==
--- NOTE | 2020-04-13 23:09 | ER Document Report ---
ED Medical Screen (RME) - General Stated Complaint: BACK PAIN LEFT SIDE Time Seen by Provider: 04/13/20 23:04 Primary Care Provider: KELLI FORTUNE DO [Primary Care Provider] - Follow up as needed Notes: HPI: 40-year-old female presenting to the emergency department complaining of 3 days of progressively worsening left upper quadrant and left flank pain. Patient states initially it was intermittent but has been constant all day today. No constipation no fever no vomiting but patient has been burping frequently over the last 2 to 3 days. No history of kidney stones or diverticular disease PHYSICAL EXAMINATION: Mild tenderness on palpation of the epigastric, left upper quadrant and left lateral abdomen on palpation difficult exam secondary to positioning in triage I have greeted and performed a rapid initial assessment of this patient. A comprehensive ED assessment and evaluation of the patient, analysis of test results and completion of medical decision making process will be conducted by an additional ED providers. TRAVEL OUTSIDE OF THE [place] 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 Psychiatric Medical History: Reports: Hx Anxiety, Hx Depression Infectious Medical History: Denies: Hx Hepatitis Past Surgical History: Reports: Hx Cholecystectomy, Hx Gynecologic Surgery - tubal ligation, Hx Tubal Ligation - Immunizations Immunizations up to date: Yes Hx Diphtheria, Pertussis, Tetanus Vaccination: Yes Physical Exam - Vital signs Vitals: Temp Pulse Resp BP Pulse Ox 97.7 F 75 18 114/71 100 04/13/20 22:12 04/13/20 22:12 04/13/20 22:12 04/13/20 22:12 04/13/20 22:12 Course - Vital Signs Vital signs: Temp Pulse Resp BP Pulse Ox 97.7 F 75 18 114/71 100 04/13/20 22:12 04/13/20 22:12 04/13/20 22:12 04/13/20 22:12 04/13/20 22:12 Doctor's Discharge - Discharge Referrals: KELLI FORTUNE DO [Primary Care Provider] - Follow up as needed
[2020-04-14 00:09] LABS: ABSOLUTE EOSINOPHILS # (AUTO) 0.1 10^3/uL (0.0-0.6); ABSOLUTE LYMPHOCYTES (AUTO) 3.3 10^3/uL (0.5-4.7); ABSOLUTE NEUT (AUTO) 6.8 10^3/uL (1.7-8.2); BASOPHILS % (AUTO) 0.4 % (0-2); EOSINOPHILS % (AUTO) 0.6 % (0-6); HEMOGLOBIN 12.6 g/dL (12.0-15.5); LYMPHOCYTES % (AUTO) 29.6 % (13-45); MEAN CORPUSCULAR HEMOGLOBIN 28.7 pg (27.0-33.4); MEAN CORPUSCULAR HGB CONC 33.3 g/dL (32.0-36.0); MEAN CORPUSCULAR VOLUME 86 fl (80-97); MONOCYTES % (AUTO) 9.1 % (3-13); PLATELET COUNT 345 10^3/uL (150-450); RED CELL DISTRIBUTION WIDTH 14.2 % (11.5-14.0); SEGMENTED NEUTROPHILS % (AUTO) 60.3 % (42-78); TOTAL CELLS COUNTED % (AUTO) 100 %; WHITE BLOOD COUNT 11.2 10^3/uL (4.0-10.5)
[2020-04-14 00:25] LABS: APPEARANCE,URINE SLIGHTLY-CLOUDY; BILIRUBIN,URINE NEGATIVE (NEGATIVE); CALCIUM OXALATE CRYSTALS,URINE FEW /HPF; COLOR,URINE YELLOW; GLUCOSE, URINE NEGATIVE (NEGATIVE); KETONES,URINE NEGATIVE (NEGATIVE); LEUKOCYTE ESTERASE,URINE SMALL (NEGATIVE); NITRITE,URINE NEGATIVE (NEGATIVE); PROTEIN,URINE NEGATIVE (NEGATIVE); URINE SPECIFIC GRAVITY 1.021
[2020-04-14 00:32] LABS: ALBUMIN 4.7 g/dL (3.5-5.0); ALKALINE PHOSPHATASE 43 U/L (38-126); ANION GAP 7 (5-19); ASPARTATE AMINO TRANSFERASE 33 U/L (14-36); BILIRUBIN,TOTAL 0.3 mg/dL (0.2-1.3); BLOOD UREA NITROGEN 16 mg/dL (7-20); CALCIUM 9.6 mg/dL (8.4-10.2); CARBON DIOXIDE 26 mmol/L (22-30); CHLORIDE 104 mmol/L (98-107); GLUCOSE 104 mg/dL (75-110); POTASSIUM 4.1 mmol/L (3.6-5.0); TOTAL PROTEIN 7.8 g/dL (6.3-8.2)
[2020-04-14] MEDS ORDERED: SUCRALFATE 1 GM TABLET PO ONE (02:18)
[2020-04-14] MEDS ORDERED: OXYCODONE-ACETAMINOPHEN 5-325 MG TABLET PO ONE (02:18)
[2020-04-14] MEDS ORDERED: FAMOTIDINE 20 MG TABLET PO ONE (02:19)
[2020-04-14] MEDS ORDERED: ONDANSETRON 4 MG TAB.RAPDIS PO ONE (02:19)
--- NOTE | 2020-04-14 02:20 | ER Document Report ---
ED GI/ - General Chief Complaint: Abdominal Pain Stated Complaint: BACK PAIN LEFT SIDE Time Seen by Provider: 04/13/20 23:04 Primary Care Provider: KELLI FORTUNE DO [Primary Care Provider] - Follow up in 3-5 days Notes: Patient is a 40-year-old female that comes emergency department for chief complaint of left upper quadrant pain that radiates around her left side, frequent belching, intermittent nausea. Symptoms have been present and worsening for about 3 days. She states that she feels the worst when she is lying down. She denies vomiting, fever, chest pain, abnormal bowel movements, hematochezia. She has had a cholecystectomy, tubal ligation. She smokes, drinks frequent caffeine, has been taking 800 mg ibuprofens recently as well. She denies alcohol, recreational drugs. TRAVEL OUTSIDE OF THE [place] IN LAST 30 DAYS: No - Related Data Allergies/Adverse Reactions: No Known Allergies Allergy (Verified 12/14/18 17:25) Past Medical History - General Information source: Patient - Social History Smoking Status: Current Every Day Smoker Chew tobacco use (# tins/day): No Frequency of alcohol use: None Drug Abuse: None Lives with: Family Family History: Reviewed & Not Pertinent Patient has homicidal ideation: No - Past Medical History Cardiac Medical History: Pulmonary Medical History: Reports: Hx Bronchitis Endocrine Medical History: Denies: Hx Diabetes Mellitus Type 1, Hx Diabetes Mellitus Type 2 Renal/ Medical History: Denies: Hx Peritoneal Dialysis GI Medical History: Denies: Hx Hepatitis Musculoskeletal Medical History: 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 Psychiatric Medical History: Reports: Hx Anxiety, Hx Depression Infectious Medical History: Denies: Hx Hepatitis Past Surgical History: Reports: Hx Cholecystectomy, Hx Gynecologic Surgery - tubal ligation, Hx Tubal Ligation - Immunizations Immunizations up to date: Yes Hx Diphtheria, Pertussis, Tetanus Vaccination: Yes Review of Systems - Review of Systems Constitutional: No symptoms reported EENT: No symptoms reported Cardiovascular: No symptoms reported Respiratory: No symptoms reported Gastrointestinal: See HPI Genitourinary: No symptoms reported Female Genitourinary: No symptoms reported Musculoskeletal: No symptoms reported Skin: No symptoms reported Hematologic/Lymphatic: No symptoms reported Neurological/Psychological: No symptoms reported Physical Exam - Vital signs Vitals: Temp Pulse Resp BP Pulse Ox 97.7 F 75 18 114/71 100 04/13/20 22:12 04/13/20 22:12 04/13/20 22:12 04/13/20 22:12 04/13/20 22:12 - Notes Notes: GENERAL: Alert, interacts well. No acute distress. HEAD: Normocephalic, atraumatic. EYES: Pupils equal, round, and reactive to light. Extraocular movements intact. ENT: Oral mucosa moist, tongue midline. Oropharynx unremarkable. Airway patent. NECK: Full range of motion. Supple. Trachea midline. No lymphadenopathy. LUNGS: Clear to auscultation bilaterally, no wheezes, rales, or rhonchi. No respiratory distress. Non-tender chest wall. HEART: Regular rate and rhythm. No murmur ABDOMEN: Patient has left upper quadrant tenderness and mild epigastric tenderness. Remaining abdomen is soft and benign without any guarding, rigidity, rebound tenderness. Bowel sounds are present. GENITOURINARY: Deferred EXTREMITIES: Moves all 4 extremities spontaneously. No edema, normal radial and dorsalis pedis pulses bilaterally. No cyanosis. BACK: no cervical, thoracic, lumbar midline tenderness. No saddle anesthesia, normal distal neurovascular exam. Moves all extremities in full range of motion. NEUROLOGICAL: Alert and oriented x3. Normal speech. Cranial nerves II through XII grossly intact. Strength 5/5 in all extremities. PSYCH: Patient easily becomes anxious or even tearful during evaluation but this also resolves very quickly SKIN: Warm, dry, normal turgor. No rashes or lesions noted. Course - Re-evaluation Re-evalutation: Patient does have left upper quadrant pain and mild epigastric pain, remaining abdomen soft and benign. Patient has had a cholecystectomy. CBC, chemistry, lipase, urinalysis, test unremarkable. Vital signs unremarkable. Patient with multiple factors contributing to gastritis including smoking, heavy caffeine use, recent heavy NSAID use. Based on her evaluation I strongly suspect gastritis, very low suspicion of acute abdomen. Patient was given p.o. medications and fluids, reevaluated, she tolerated this very well and feels si gnificantly improved. I discussed with patient gastritis, recommendations, treatment, follow-up, and return precautions. Patient states understanding and agreement. Stable and well-appearing at time of discharge. - Vital Signs Vital signs: Temp Pulse Resp BP Pulse Ox 98.6 F 70 14 118/68 100 04/14/20 04:15 04/14/20 04:15 04/14/20 04:15 04/14/20 04:15 04/14/20 04:15 - Laboratory Result Diagrams: 04/13/20 23:56 04/13/20 23:56 Laboratory results interpreted by me: 04/13/20 04/13/20 23:56 23:56 WBC 11.2 H RDW 14.2 H Urine Urobilinogen 2.0 H Ur Leukocyte Esterase SMALL H Discharge - Discharge Clinical Impression: Left upper quadrant pain Condition: Stable Disposition: HOME, SELF-CARE Instructions: Oral Narcotic Medication ([facility]) Additional Instructions: Your symptoms and examination indicate gastritis/esophagitis (inflammation of your upper gastrointestinal tract). Take Phenergan for nausea, take Carafate and Pepcid as prescribed to help treat this, you can take additional Rolaids, Tums, Maalox, etc. if needed. You can take Tylenol for pain or the stronger pain medication (see instructions). Avoid NSAIDs, alcohol, smoking, caffeine, spicy food. Start with clear fluids, progress to bland diet. Follow-up with primary care for additional evaluation and treatment including possible H. pylori testing or even endoscopy. Return if you worsen including uncontrolled vomiting, vomiting blood, black stools, severe pain, fever of 100.4 or greater, or any other concerning or worsening symptoms. Prescriptions: Sucralfate [Carafate 1 gm Tablet] 1 gm PO QID #20 tablet Hydrocodone/Acetaminophen [[place] 5-325 mg Tablet] 1 - 2 tab PO Q6H PRN #6 tablet PRN Reason: Famotidine [Pepcid 20 mg Tablet] 20 mg PO BID #14 tablet Promethazine HCl [Phenergan 25 mg Tablet] 25 mg PO Q6H PRN #15 tablet PRN Reason: Forms: Return to Work Referrals: KELLI FORTUNE DO [Primary Care Provider] - Follow up in 3-5 days
[2020-04-14] MEDS ORDERED: HYDROCODONE/ACETAMINOPHEN 5-325 MG TABLET PO ONE (02:45)
[2020-04-14 04:38] VITALS: BP 118/68
== END 2020-04-14 04:15 | disposition home or self-care (01) ==
LOC: ER 22:06
DX: R10.12 Left upper quadrant pain (principal); R10.9 Unspecified abdominal pain; M54.9 Dorsalgia, unspecified; F17.200 Nicotine dependence, unspecified, uncomplicated
CPT/HCPCS: 99284; 36415; 83690; 85025; 81025; 80053; 81001; J3490 ×2; S0119

== ENCOUNTER 2020-04-15 08:36 | Emergency (ER) | payer MEDICAID ==
[2020-04-15] MEDS ORDERED: RINGERS SOLUTION,LACTATED 1,000 ML IV ONE (09:47)
[2020-04-15] MEDS ORDERED: METOCLOPRAMIDE HCL INJ/PF 10 MG/2 ML SDV IV ONE (09:48)
--- NOTE | 2020-04-15 09:48 | ER Document Report ---
ED GI/ - General Chief Complaint: Abdominal Pain Stated Complaint: ANXIOUS, ABDOMINAL PAIN Time Seen by Provider: 04/15/20 08:57 Primary Care Provider: KELLI FORTUNE DO [Primary Care Provider] - Follow up as needed RENNY BETH MD [ACTIVE STAFF] - Follow up as needed Mode of Arrival: Ambulatory Information source: Patient Notes: 45-year-old female past medical history significant for anxiety, chronic bronchitis presents to the emergency room complaining of persistent left upper quadrant pain for the past week. Has been seen in the emergency room twice. Patient also states she has had 2 syncopal episodes but they were prior to her first ED visit. She has not had any since she was discharged here 2 days ago. Was diagnosed most recently with gastritis was discharged home on Carafate, Pepcid, Phenergan, hydrocodone patient states she is getting minimal relief with the medications. Complains of persistent nausea but no vomiting. No fevers, no urinary symptoms. No recent travel, no COVID-19 exposure. States the pain is causing her anxiety to flareup, states she took her hydroxyzine today just prior to arrival with some relief of her anxiety. Denies suicidal homicidal ideation. TRAVEL OUTSIDE OF THE [place] IN LAST 30 DAYS: No - Related Data Allergies/Adverse Reactions: No Known Allergies Allergy (Verified 04/15/20 08:46) Past Medical History - General Information source: Patient - Social History Smoking Status: Current Every Day Smoker Chew tobacco use (# tins/day): No Frequency of alcohol use: None Drug Abuse: Marijuana Family History: Reviewed & Not Pertinent Patient has homicidal ideation: No - Past Medical History Cardiac Medical History: Pulmonary Medical History: Reports: Hx Bronchitis Endocrine Medical History: Denies: Hx Diabetes Mellitus Type 1, Hx Diabetes Mellitus Type 2 Renal/ Medical History: Denies: Hx Peritoneal Dialysis GI Medical History: Denies: Hx Hepatitis Musculoskeletal Medical History: 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 denies: Diarrhea, Vomiting Genitourinary: No symptoms reported Musculoskeletal: No symptoms reported Skin: No symptoms reported Hematologic/Lymphatic: No symptoms reported Neurological/Psychological: Anxiety -: Yes All other systems reviewed and negative Physical Exam - Vital signs Vitals: Temp 97.6 F 04/15/20 08:40 - General General appearance: Appears well, Alert In distress: Mild - HEENT Head: Normocephalic, Atraumatic Eyes: Normal Pupils: PERRL - Respiratory Respiratory status: No respiratory distress Chest status: Nontender Breath sounds: Normal Chest palpation: Normal - Cardiovascular Rhythm: Regular Heart sounds: Normal auscultation Murmur: No - Abdominal Inspection: Normal Distension: No distension Bowel sounds: Normal Tenderness: Nontender. No: Guarding, Rebound Organomegaly: No organomegaly - Back Back: Normal, Nontender. No: CVA tenderness - Neurological Neuro grossly intact: Yes Cognition: Normal Orientation: AAOx4 Jenifer Coma Scale Eye Opening: Spontaneous [place] Coma Scale Verbal: Oriented [place] Coma Scale Motor: Obeys Commands Jenifer Coma Scale Total: 15 Speech: Normal Motor strength normal: LUE, RUE, LLE, RLE Sensory: Normal - Skin Skin Temperature: Warm Skin Moisture: Dry Skin Color: Normal Course - Re-evaluation Re-evalutation: 04/15/20 13:32 Patient is resting comfortably she currently is pain-free on exam. Reviewed CT result, CBC, CMP results with patient. Where urinalysis still pending. Patient just provided urine sample that will be sent to the lab 04/15/20 14:20 Patient remains pain-free on exam, afebrile, nontoxic-appearing, tolerates p.o. fluids. Reviewed all test results with patient. She was counseled to follow-up outpatient with a primary care physician. Patient was given strict return to the emergency room guidelines. Return for any new or worsening symptoms. All questions were answered. Patient verbalized understanding and agrees with plan of care. - Vital Signs Vital signs: Temp Pulse Resp BP Pulse Ox 97.6 F 85 20 126/63 H 100 04/15/20 08:47 04/15/20 08:47 04/15/20 08:47 04/15/20 11:01 04/15/20 12:01 - Laboratory Result Diagrams: 04/15/20 09:22 04/15/20 09:22 Laboratory results interpreted by me: 04/15/20 04/15/20 04/15/20 09:22 09:22 13:30 RDW 14.1 H Glucose 122 H AST 45 H ALT 41 H Total Protein 8.3 H Urine Ketones 80 H - Diagnostic Test Radiology reviewed: Reports reviewed Discharge - Discharge Clinical Impression: Abdominal pain of unknown etiology, Left upper quadrant pain, Pelvic congestion syndrome Condition: Stable Disposition: HOME, SELF-CARE Instructions: Abdominal Pain ([facility]) Additional Instructions: You have been seen in the Emergency Department (ED) for abdominal pain. Your evaluation did not identify a clear cause of your symptoms but was generally reassuring. Please follow up with your doctor as soon as possible regarding today's emergent visit and the symptoms that are bothering you. Return to the ED if your abdominal pain worsens or fails to improve, you develop bloody vomiting, bloody diarrhea, you are unable to tolerate fluids due to vomiting, fever greater than 101, or other symptoms that concern you. You need to follow-up with an [facility] for the pelvic congestion that we discussed. Follow-up with your primary care physician in the next 2 to 3 days. Referrals: KELLI FORTUNE DO [Primary Care Provider] - Follow up as needed RENNY BETH MD [ACTIVE STAFF] - Follow up as needed
[2020-04-15 10:01] LABS: ABSOLUTE LYMPHOCYTES (AUTO) 1.6 10^3/uL (0.5-4.7); ABSOLUTE MONOCYTES (AUTO) 0.7 10^3/uL (0.1-1.4); ABSOLUTE NEUT (AUTO) 6.1 10^3/uL (1.7-8.2); BASOPHILS % (AUTO) 0.5 % (0-2); EOSINOPHILS % (AUTO) 0.4 % (0-6); HEMATOCRIT 39.7 % (36.0-47.0); HEMOGLOBIN 13.4 g/dL (12.0-15.5); MEAN CORPUSCULAR HEMOGLOBIN 29.3 pg (27.0-33.4); MEAN CORPUSCULAR HGB CONC 33.7 g/dL (32.0-36.0); MEAN CORPUSCULAR VOLUME 87 fl (80-97); MONOCYTES % (AUTO) 8.8 % (3-13); PLATELET COUNT 350 10^3/uL (150-450); RED BLOOD COUNT 4.57 10^6/uL (3.72-5.28); RED CELL DISTRIBUTION WIDTH 14.1 % (11.5-14.0); SEGMENTED NEUTROPHILS % (AUTO) 71.3 % (42-78); TOTAL CELLS COUNTED % (AUTO) 100 %; WHITE BLOOD COUNT 8.5 10^3/uL (4.0-10.5)
[2020-04-15 10:19] LABS: ALKALINE PHOSPHATASE 51 U/L (38-126); ANION GAP 11 (5-19); ASPARTATE AMINO TRANSFERASE 45 U/L (14-36); BILIRUBIN,DIRECT 0.1 mg/dL (0.0-0.4); BILIRUBIN,TOTAL 0.8 mg/dL (0.2-1.3); BLOOD UREA NITROGEN 18 mg/dL (7-20); CALCIUM 9.7 mg/dL (8.4-10.2); CARBON DIOXIDE 22 mmol/L (22-30); CHLORIDE 105 mmol/L (98-107); GLUCOSE 122 mg/dL (75-110); POTASSIUM 4.3 mmol/L (3.6-5.0); TOTAL PROTEIN 8.3 g/dL (6.3-8.2)
--- NOTE | 2020-04-15 11:05 | RADIOLOGY REPORT (SQ) ---
EXAM DESCRIPTION: CT ABD/PELVIS WITH IV ONLY IMAGES COMPLETED DATE/TIME: 04/15/2020 10:44 am REASON FOR STUDY: abdominal pain COMPARISON: None. TECHNIQUE: CT scan of the abdomen and pelvis performed using helical scanning technique with dynamic intravenous contrast injection. No oral contrast. Images reviewed with lung, soft tissue, and bone windows. Reconstructed coronal and sagittal MPR images reviewed. Delayed images for evaluation of the urinary system also acquired. All images stored on PACS. All CT scanners at this facility use dose modulation, iterative reconstruction, and/or weight based d osing when appropriate to reduce radiation dose to as low as reasonably achievable (ALARA). [facility]: Dose Right [facility]: CareDose [facility]: Dose Right [facility]: Teradose 4D [facility]: [employer] CONTRAST TYPE AND DOSE: 74 mL Omnipaque 350- low osmolar. RENAL FUNCTION: GFR > 60. RADIATION DOSE: CT Rad equipment meets quality standard of care and radiation dose reduction techniq ues were employed. CTDIvol: 5.1 - 6.7 mGy. DLP: 637 mGy-cm. LIMITATIONS: None. FINDINGS: LOWER CHEST: No acute findings. LIVER: The morphology of the liver is noncirrhotic. There is a 9 x 7 mm hypodense lesion within segm ent 2 of the liver that is considered too small to characterize. The portal veins are patent. SPLEEN: No splenomegaly or splenic mass. PANCREAS: No acute abnormality of the pancreas. GALLBLADDER: The gallbladder is surgically absent. ADRENAL GLANDS: No mass or asymmetry. RIGHT KIDNEY AND URETER: 3 mm calculus within an upper pole calyx. There is no solid mass, hydroneph rosis, hydroureter or ureterolithiasis. LEFT KIDNEY AND URETER: Exophytic cystic lesion that projects from the interpolar portion of the kid hector and measures 2.4 x 2 cm. There is no solid mass, hydronephrosis, nephrolithiasis, hydroureter or ureterolithiasis AORTA AND VESSELS: No aneurysm or dissection of the abdominal aorta. The left gonadal vein is enlarg ed and there are prominent parametrial vessels/varicose veins in the left hemipelvis. RETROPERITONEUM: No retroperitoneal adenopathy, hemorrhage or mass. BOWEL AND PERITONEAL CAVITY: Colonic diverticulosis without diverticulitis. There is no bowel obstru ction, bowel wall thickening or pericolonic/ perienteric inflammation. There is no mesenteric adenop athy, free intraperitoneal fluid or mesenteric/ omental inflammation. APPENDIX: Normal. PELVIS: Essure devices in place. There is a probable corpus luteum cyst in the left ovary. Urinary bladder is distended and normal in appearance ABDOMINAL WALL: Fat containing paraumbilical hernia. BONES: No fracture or osseous lesion. OTHER: No other finding. IMPRESSION: 1. No acute intra-abdominal abnormality. 2. Enlarged left gonadal vein and prominent parametrial vessels/varicose veins in the left hemipelvi s. The findings are typical in the setting of pelvic congestion syndrome and if the patient remains symptomatic a referral to Interventional Radiology as an outpatient could be placed to discuss emboli zation. 3. 9 x 7 mm hypodense lesion within segment 2 of the liver (image 10 of series 3) that is considere d too small to characterize. 4. 3 mm nonobstructive caliceal calculus in the upper pole of the right kidney. 5. Colonic diverticulosis without diverticulitis. TECHNICAL DOCUMENTATION: JOB ID: [id number] Quality ID # [id number]: Final reports with documentation of one or more dose reduction techniques (e.g., Au tomated exposure control, adjustment of the mA and/or kV according to patient size, use of iterative reconstruction technique) 2010 [employer]- All Rights Reserved Reading location - IP/workstation name: [email or web address]
[2020-04-15 13:56] LABS: APPEARANCE,URINE CLEAR; BILIRUBIN,URINE NEGATIVE (NEGATIVE); COLOR,URINE YELLOW; GLUCOSE, URINE NEGATIVE (NEGATIVE); KETONES,URINE 80 mg/dL (NEGATIVE); LEUKOCYTE ESTERASE,URINE NEGATIVE (NEGATIVE); NITRITE,URINE NEGATIVE (NEGATIVE); PROTEIN,URINE NEGATIVE (NEGATIVE); UROBILINOGEN,URINE NEGATIVE mg/dL (<2.0)
[2020-04-15 14:04] LABS: URINE SPECIFIC GRAVITY > 1.060
[2020-04-15 15:13] VITALS: BP 108/57
== END 2020-04-15 15:13 | disposition home or self-care (01) ==
LOC: ER 08:36
DX: N94.89 Other specified conditions associated with female genital organs and menstrual cycle (principal); R10.12 Left upper quadrant pain; F17.200 Nicotine dependence, unspecified, uncomplicated; Z90.49 Acquired absence of other specified parts of digestive tract; Z98.51 Tubal ligation status
CPT/HCPCS: 99284; 96361; 96374; 36415; 84702; 83690; 85025; 80053; 81001; 74177; J2765; J7120

== ENCOUNTER 2020-11-09 10:26 | Emergency (ER) | payer MEDICAID ==
[2020-11-09 10:37] VITALS: BP 115/70
--- NOTE | 2020-11-09 18:53 | EKG REPORT ---
SEVERITY:- NORMAL ECG - SINUS RHYTHM : Confirmed by: Rell Ortiz MD 09-Nov-2020 18:52:44
== END 2020-11-09 12:15 | disposition left against medical advice (07) ==
LOC: ER 10:26
DX: Z53.21 Procedure and treatment not carried out due to patient leaving prior to being seen by health care provider (principal)
CPT/HCPCS: 93005; 93010; 99281